=== PATIENT | male | born 1965 | race Two or more races ===

== ENCOUNTER 2024-06-24 09:55 | Emergency (ER) | payer MEDICAID, MEDICARE, OTHER ==
[~2024-06-24] VITALS: Ht 185.4 cm; Wt 107.7 kg
[~2024-06-24 09:55] MED LIST: [UNRECOGNIZED DRUG - CODE]; [UNRECOGNIZED DRUG - CODE]
[2024-06-24 11:13] LABS: Basophils # (auto) 0 10 ^3/uL (0-0.2); Eosinophils # (auto) 0.1 10 ^3/uL (0-0.8); Monocytes # (auto) 0.3 10 ^3/uL (0-1.3); Nucleated Red Blood Cells % 0.2 %
[2024-06-24 11:16] LABS: Eosinophils % (auto) 2.4 % (0.0-7.0); Hematocrit 31.5 % (41.0-53.0); Hemoglobin 9.7 g/dL (13.5-17.5); Lymphocytes # (auto) 0.5 10 ^3/uL (0.4-5.4); Lymphocytes % (auto) 14.7 % (10.0-50.0); Mean Corpuscular Hemoglobin 24.7 pg (28.0-32.0); Mean Corpuscular Volume 79.7 fL (80.0-100.0); Monocytes % (auto) 9.1 % (0.0-12.0); Neutrophils # (auto) 2.7 10 ^3/uL (1.6-8.6); Neutrophils % (auto) 72.8 % (37.0-80.0); Platelet Count (auto) 240 10^3/uL (140-450); Red Blood Cells 3.95 10^6/uL (4.5-5.90); White Blood Cell 3.7 10^3/uL (4.4-10.8)
[2024-06-24 11:18] LABS: Red Cell Distribution Width 24.2 % (11.8-14.3)
[2024-06-24 11:27] LABS: Anisocytosis Moderate; Hypochromia Slight; Platelet Estimate Adequate; Polychromasia Slight
[2024-06-24 11:33] LABS: Chloride 109 mmol/L (98-107); Potassium 4.2 mmol/L (3.5-5.1); Sodium 140 mmol/L (136-145)
[2024-06-24 11:34] LABS: Anion Gap 6 (5-15); Calcium 9.5 mg/dL (8.7-10.4); Carbon Dioxide 25 mmol/L (20-31)
[2024-06-24 11:39] LABS: BUN/Creatinine Ratio 8.2 (10.0-20.0); Blood Urea Nitrogen 6 mg/dL (9-23); Glucose 106 mg/dL (74-106)
[2024-06-24 12:10] VITALS: BP 136/73; PULSE 76; RESP 16; O2SAT 100
[2024-06-24] MEDS ORDERED: CEPH500C PO (13:06)
[2024-06-24] MEDS ORDERED: cefTRIAXone SOD 1,000 MG VL IM ONE (13:15)
[2024-06-24] MEDS ORDERED: HYDR-4902 PO (13:23)
== END 2024-06-24 13:05 | disposition left against medical advice (07) ==
LOC: ER 09:55
DX: M79.89 Other specified soft tissue disorders (principal); Z98.890 Other specified postprocedural states
CPT/HCPCS: 36415; 80048; 85025; 93971